=== PATIENT | female | born 1975 | race Caucasian/White ===

== ENCOUNTER 2023-01-24 09:14 | Outpatient (CLI) | payer BC, SELFPAY ==
--- NOTE | 2023-01-24 09:15 | CRLHL7_ITS ---
For Patients: As a result of the Century Cures Act, medical imaging exams and procedure reports are released immediately into your electronic medical record. You may view this report before your referring provider. If you have questions, please contact your health care provider. BILATERAL SCREENING MAMMOGRAM WITH COMPUTER-AIDED DETECTION TECHNIQUE: CC and MLO views were obtained. These mammographic images have been obtained using full-field digital technique. These mammographic images were interpreted with the benefit of computer-aided detection. COMPARISON FILM: 12/27/21, 09/14/20, 07/16/19. FINDINGS: The breasts are heterogeneously dense, which may obscure small masses IMPRESSION: There is no radiographic evidence for malignancy. ASSESSMENT: BI-RADS Category 1: Negative RECOMMENDATION: Routine screening mammogram in 1 year. A lay language report of this examination will be provided to the patient. Deshaun Duran M.D. Diagnostic Radiologist [email or web address] SMITH/Dictated by: Deshaun Duran MD @ 01/24/2023 12:19:00 PM (Electronically Signed)
== END 2023-01-24 09:15 | disposition home or self-care (01) ==
LOC: MAMMO 09:17
PROVIDERS: PCP Physician Assistant; Referring Provider Physician Assistant; Visit Provider Physician Assistant
DX: Z12.31 Encounter for screening mammogram for malignant neoplasm of breast (principal); R92.2 Inconclusive mammogram
CPT/HCPCS: 77063; 77067

== ENCOUNTER 2024-04-29 15:20 | Outpatient (CLI) | payer BC, SELFPAY ==
--- NOTE | 2024-04-29 15:20 | CRLHL7_ITS ---
For Patients: As a result of the Century Cures Act, medical imaging exams and procedure reports are released immediately into your electronic medical record. You may view this report before your referring provider. If you have questions, please contact your health care provider. BILATERAL SCREENING MAMMOGRAM WITH COMPUTER-AIDED DETECTION AND TOMOSYNTHESIS TECHNIQUE: CC and MLO views were obtained. These mammographic images have been obtained using full-field digital technique. These mammographic images were interpreted with the benefit of computer-aided detection. Breast Tomosynthesis was used in this interpretation. COMPARISON FILM: 01/24/23, 12/27/21, 09/14/20. FINDINGS: The breasts are heterogeneously dense, which may obscure small masses. IMPRESSION: There is no radiographic evidence for malignancy. ASSESSMENT: BI-RADS Category 1: Negative RECOMMENDATION: Routine screening mammogram in 1 year. A lay language report of this examination will be provided to the patient. Deshaun Duran M.D. Diagnostic Radiologist [email or web address] SP/Dictated by: Deshaun Duran MD @ 05/01/2024 10:08:00 AM (Electronically Signed)
== END 2024-04-29 15:21 | disposition home or self-care (01) ==
LOC: MAMMO 15:21
PROVIDERS: Visit Provider Physician Assistant
DX: Z12.31 Encounter for screening mammogram for malignant neoplasm of breast (principal); R92.2 Inconclusive mammogram
CPT/HCPCS: 77063; 77067

== ENCOUNTER 2024-05-13 11:16 | Outpatient (CLI) | payer BC, SELFPAY ==
[2024-05-15 18:44] LABS: HPV Source Cervix; HPV, High Risk by TMA Not Detected
== END 2024-05-13 11:17 | disposition home or self-care (01) ==
PROVIDERS: Visit Provider Physician Assistant
DX: Z12.4 Encounter for screening for malignant neoplasm of cervix (principal); Z13.220 Encounter for screening for lipoid disorders; Z13.1 Encounter for screening for diabetes mellitus
CPT/HCPCS: 80061; 82947; 87624; 87625; 88141; 88142

== ENCOUNTER 2025-08-04 09:29 | Outpatient (CLI) | payer BC, SELFPAY | END 2025-08-04 09:30 | disposition home or self-care (01) | LOC: LKVREF 09:30 | PROVIDERS: Visit Provider Physician Assistant | DX: Z13.6 Encounter for screening for cardiovascular disorders (principal); Z13.1 Encounter for screening for diabetes mellitus | CPT/HCPCS: 80061; 82947 ==